=== PATIENT | female | born 2000 | race Asian ===

== ENCOUNTER 2022-11-29 03:39 | Emergency (ER) | payer OTHER ==
[~2022-11-29] VITALS: Ht 160 cm; Wt 67.6 kg
[2022-11-29 03:50] VITALS: BP_SYST 120
[2022-11-29] MEDS ORDERED: WELSR150 PO (03:55)
--- NOTE | 2022-11-29 03:57 | NUR ---
Patient triaged and placed in waiting room. VS checked and patient appears in no acute distress at this time. Accompanied by self, awaiting available bed, and MD notified of need for MSE.
--- NOTE | 2022-11-29 04:24 | NUR ---
ER examining patient in triage.
--- NOTE | 2022-11-29 04:28 | NUR ---
COVID SWAB COLLECTED AND SENT TO LAB.
[2022-11-29 05:45] VITALS: BP_SYST 118
--- NOTE | 2022-11-29 05:45 | NUR ---
Patient discharged with verbal instructions given by Dr Rosa. Patient left without written instructions.
== END 2022-11-29 05:45 | disposition home or self-care (01) ==
LOC: SED 03:39
DX: R06.02 Shortness of breath (principal); F41.9 Anxiety disorder, unspecified; R00.2 Palpitations; R11.0 Nausea; Z79.899 Other long term (current) drug therapy; Z20.822 Contact with and (suspected) exposure to COVID-19
CPT/HCPCS: 36415; 71045; 99284